=== PATIENT | female | born 1990 | race Caucasian/White ===

== ENCOUNTER 2017-01-20 12:42 | Inpatient (IN) | payer OTHER ==
[~2017-01-20] VITALS: Ht 154.9 cm; Wt 87.5 kg
[~2017-01-20 12:42] MED LIST: HYDROcodone-APAP 5-325 PO
[2017-01-20 15:19] LABS: Mean Corpuscular Volume 88.4 fL (81-100)
[2017-01-20] MEDS ORDERED: Oxytocin 30 Units/500 mL LR 30 UNITS in IV Premix 1 EACH IV PRN ×2 (17:50→18:20)
[2017-01-20] MEDS ORDERED: diphenhydrAMINE 50 mg Capsule PO PRN (17:50)
[2017-01-20] MEDS ORDERED: Oxytocin 10 Unit/mL Inj IM PRN (18:20)
[2017-01-20] MEDS ORDERED: fentaNYL-PF 50 mCg/mL 2 mL Inj IVPUSH PRN (18:20)
[2017-01-20] MEDS ORDERED: Hemorrhage Kit, Post Partum XX ONE (18:20)
[2017-01-20] MEDS ORDERED: Methylergonovine 0.2 mg/mL Inj IM PRN (18:20)
[2017-01-20] MEDS ORDERED: Lactated Ringer's 1,000 ML IV SCH (18:20)
[2017-01-20] MEDS ORDERED: Sodium Chloride LOK Flush 10 mL Syringe IVFLUSH PRN (18:20)
[2017-01-20] MEDS ORDERED: Lactated Ringer's 1,000 ML IV PRN (18:20)
[2017-01-20] MEDS ORDERED: Carboprost 250 mCg/mL Inj IM PRN (18:20)
--- NOTE | 2017-01-20 18:20 | CONS ---
[address] [address] CONSULTATION REPORT PATIENT: MAYITO PARIS V : 1990 MR#: [id number] ADMIT: 01/20/2017 JOB ID: [id number] DATE OF SERVICE: 01/20/2017 REQUESTING PHYSICIAN: Dr. Giang, who is covering for (patient's primary OB provider) HISTORY OF PRESENT ILLNESS: The patient is 26-year-old, 2, para 1-0-0-1, at 40 weeks and 5 days gestational age by LMP, confirmed by 17-week ultrasound. Had her complicated with the following. 1. Gestational hypertension. 2. History of HSV, currently on prophylaxis that started at 34 weeks gestational age. Presented to triage for elective NST. Elevated blood pressures were noted and consult was requested by Dr. Giang. PAST OBSTETRICAL HISTORY: 2009, A 39-weeks ended with spontaneous vaginal delivery and the current . PAST GYNECOLOGIC HISTORY: Prior history of recurrent HSV. Prophylaxis started at 34 weeks gestational age this . PAST MEDICAL HISTORY: Gastroesophageal reflux disease and headache. MEDICATIONS: 1. Omeprazole. 2. Valacyclovir. 3. vitamins. ALLERGIES: She patient records list. SOCIAL HISTORY: Denied any alcohol consumption. Denied any drugs of abuse. Denied any cigarette smoking. LABORATORIES: O-positive, rubella immune, serology nonreactive, hepatitis B surface antigen negative. HIV nonreactive. GC Chlamydia cultures negative. One-hour GCT within normal limits. GBS cultures negative. Preeclampsia. labs in triage: H and H is 15.2, 40.2. Platelets showed 208. White blood count 9.8. AST 21. ALT 11. Uric acid 5.9. Creatinine is 0.61. BUN is 9. Urine protein/creatinine ratio is 0.11. Within normal limits. PHYSICAL EXAMINATION: Patient is alert, oriented x3. Vital signs are 136/93 for blood pressure. Respirations are 18, pulse is 92, pulse ox is 98% on room air. Blood pressure ranges within the last 3 hours of triage evaluation showed the following: Systolic ranges are 144-134, diastolic ranges are 102-88. Heart is regular rate and rhythm. Positive S1, S2. Lungs clear to auscultation bilaterally. Abdomen: Gravid uterus. Lower extremities: No calf tenderness appreciated bilaterally. Perineal exam showed no herpetic lesions. No lesions as well palpated on vaginal and cervical exam. Cervix is 1 cm dilated, 60% effaced, -3 station, vertex presentation, midposition, medium consistency. Castillo score of 5. *Cervical ripening balloon was inserted successfully, 80 cc of normal saline injected in the uterine balloon and 80 cc injected in the vaginal balloon. Patient tolerated the insertion well. heart tracing is showing a baseline of 155 beats per minute, positive accelerations, no decelerations, moderate variability, reactive tracing. ASSESSMENT AND PLAN: Patient is a 26-year-old, 2, para 1-0-0-1, at 40 weeks and 5 days gestational age. with gestational hypertension. Discussed with Dr. Giang. Admission and induction of labor was recommended. Dr. Ginag agreed and asked me to insert a cervical ripening balloon (see procedure note above).The patient tolerated the insertion well. 1. heart tracing is reactive. Will continue with external monitoring. 2. Induction of labor, started with cervical ripening balloon.Follow with Pitocin IV. 3. GBS cultures negative. 4. Dr. Giang to discuss intrapartum analgesia options with the patient. All the above discussed in details with the patient. Induction consent signed. All questions answered. MICHA
--- NOTE | 2017-01-20 18:43 | PCM.HPOB ---
Subjective Date of Service: Jan 20, 2017 Referring Provider: Admitting Physician: Delgado Giang MD Primary Care Physician: Marlin Madison MD Attending Physician: Delgado Giang MD Chief Complaint Post-dates . History of Present History of Present Illness Patient presented today for a scheduled post-dates NST. monitoring was reassuring. However, maternal vital signs showed persistent elevation of diastolic blood pressures, in the mid to high 90s. Patient was asymptomatic. Serum and urine labs were reassuring, with no evidence of pre-eclampsia or HELLP. OB History: (2), Para (1), Term (1), Pre-term (0), ( 0), Living (1) Obstetrical Complications: Gestational Diabetes Past Medical History Obstetrical History: at 39 wks EGA, on 10/13/10. YAMILETH for analgesia. 6lb 9oz. Gynecologic History: Recurrent genital HSV, asymptomatic and on valacyclovir prophylaxis since 34 weeks EGA. Past LEEP for cervical dysplasia. Medical History: GERD Surgical History: Appendectomy 2014 Social History: Single. Hx Tobacco Use: No Hx Alcohol Use: No Hx Substance Use: No Genetic Screening/Counseling Genetic Screening/Counseling: Negative Review of Systems Constitutional: Y: Chills, Fever, Pain Cardiovascular: Denies: Chest Pain, Palpitations Respiratory: Denies: Cough, Wheezing Gastrointestinal: Denies: Abdominal Pain, Epigastric pain, Nausea, Vomiting Neurological: Denies: Change in Speech, Confusion, Numbness Hematologic: Denies: Abnormal bleeding Medications Home medications vitamins once daily Omeprazole 20mg twice daily Valacyclovir 500mg twice daily Allergy Coded Allergies: erythromycin base (Verified Allergy, Unknown, 09/05/15) sulfisoxazole (Verified Allergy, Unknown, 09/05/15) Uncoded Allergies: SULFA (Allergy, Unknown, 09/05/15) Exam Vital Signs As noted above. Systolic pressures all <140. Diastolic pressures consistently in the 90s. Constitutional: Well-developed, Well-nourished, Normal habitus, Well-groomed HEENT: Atraumatic Lungs: Clear to Auscultation, Normal Air Movement Heart: Normal S1, Normal S2, No Murmurs/Rubs/Gallops Abdomen: Gravid, Soft, No tenderness Neurological/Psychiatric: Alert, Oriented X3, Cooperative, No Acute Distress Neuro: Grossly Neurologically Intact Additional Information Genital/cervical exam per Dr. Pineda's evaluation. Labs/Diagnostics Maternal Blood Type: O (positive) Hx Rho(D) Immune Globulin: No Previous with GBS: No Rubella: Immune Lab History: Positive for: Hx Herpes, Negative for: Hx Gonorrhea, Hx HIV, Hx Syphilis OB Intrapartum Assessment/Plan Assessment Post-dates gestation with gestational hypertension. Problems: (1) Gestational hypertension w/o significant proteinuria in 3rd trimester Plan: Admit for labor induction. Status: Acute ICD Code: O13.3 (2) Post-term , 40-42 weeks of gestation Status: Acute ICD Code: O48.0 Pain Evaluation: Adequate Pain Control Delgado Giang MD Jan 20, 2017 18:43
[2017-01-20] MEDS: Lactated Ringer's 1,000 ML IV SCH (20:20)
[2017-01-20] MEDS: Pantoprazole 20 mg ER24 Tablet PO SCH (20:34)
[2017-01-21] MEDS: Lactated Ringer's 1,000 ML IV SCH ×6 (05:30→22:28)
[2017-01-21] MEDS ORDERED: Oxytocin 30 Units/500 mL LR Premix IV SCH (06:20)
[2017-01-21] MEDS: Pantoprazole 20 mg ER24 Tablet PO SCH ×2 (08:27→20:00)
--- NOTE | 2017-01-21 09:21 | PCM.PNOBIP ---
Subjective Date of Service Jan 21, 2017 Delivery plan: Spontaneous Vaginal Delivery Visit History Labor induction for post-dates gestational hypertension. Subjective Patient feeling well. Cervical balloon catheter is now out and oxytocin has been initiated (now at 6 mU/min). Pain Management: No or Minimal Pain Activity: Ambulating Independently Rubella: Immune Blood Type: O (positive) Labs Laboratory Tests 01/20/17 15:15: White Blood Count 9.8, Red Blood Count 4.55, Hemoglobin 13.2, Hematocrit 40.2, Mean Corpuscular Volume 88.4, Mean Corpuscular Hemoglobin 29.0, Mean Corpuscular Hemoglobin Concent 32.8, Red Cell Distribution Width 14.9, Platelet Count 208 Exam Vital Signs Vital Signs Contraction frequency in minutes: 2-4 Vital Signs: VS reviewed, stable (blood pressures have improved from admission) Heart Tracings Heart Tones Baseline 150 bpm Heart Rate Variability: Moderate Heart Rate Accelleration: Present Heart Rate Deceleration: Absent Heart Rate Category: I Tocometry/IUPC Contraction frequency in minutes: MVUs: Sterile Vaginal Exam Cervical Dilation: 4 cms Cervical Effacement: 90 % Station: -3 Exam General: Alert, Oriented X3, Cooperative, No Acute Distress OB Intrapartum Assessment/Plan Assessment Post-dates labor induction, progressing Problems: (1) Gestational hypertension w/o significant proteinuria in 3rd trimester Status: Acute ICD Code: O13.3 (2) Post-term , 40-42 weeks of gestation Status: Acute ICD Code: O48.0 Intrapartum plan: AROM (clear fluid) Intrapartum Pain Management: May have epidural when desired, IV Fentanyl Pain Evaluation: Adequate Pain Control Delgado Giang MD Jan 21, 2017 09:21
[2017-01-21] MEDS ORDERED: Ondansetron 2 mg/mL 2 mL Inj IVPUSH PRN (10:40)
[2017-01-21] MEDS ORDERED: Atropine 1 mg/10 mL (Code) Syringe IVPUSH PRN (10:40)
[2017-01-21] MEDS ORDERED: Lactated Ringer's 500 ML IV ONE (10:40)
[2017-01-21] MEDS ORDERED: EPHEDrine Sulfate 50 mg/mL Inj IVPUSH PRN (10:40)
[2017-01-21] MEDS ORDERED: fentaNYL 2 mCg/mL-Bupiv 0.125% 100 ML EPIDURAL SCH (10:40)
--- NOTE | 2017-01-21 10:43 | PCM.HPANE ---
Patient Data Date of Service: Jan 21, 2017 Surgeon Admitting Provider:Delgado Gaing MD Attending Provider:Delgado Giang MD Primary Care Physician:Marlin Madison MD Other Provider:Angel Elizondo Anesthesia Reason for Visit NST NST Ht/WT & BMI Body Mass Index Allergies Coded Allergies: erythromycin base (Verified Allergy, Unknown, 09/05/15) sulfisoxazole (Verified Allergy, Unknown, 09/05/15) Uncoded Allergies: SULFA (Allergy, Unknown, 09/05/15) Diabetes History Hx Diabetes?: No MRSA MRSA: No Medications Active Scripts [Hydrocodone/Acetaminophen] ([place] 5-325)1 TABLET TABLET No Conflict Check1-2 Tablet PO Q4H PRN For Pain #20 TABLET Prov:Oswaldo Hess PA-C 09/06/15 History History of ENT Problems?: No Hx of Heart Problems?: No Cardiovascular History: Denies:: Congestive Heart Failure Hypertension Hx of Respiratory Problem?: No Respiratory History: Denies:: Tuberculosis Hx Neurologic Problems?: No Hx of GI Problems?: No Hx of Problems?: Yes Genitourinary History: Positive for:: Urinary Tract Infection Female Hx: Denies:: Currently Endometriosis Pelvic Inflammatory Problems with Breasts? Hx Musculoskeletal Problems?: No Hx of Psycho/Social Problems?: No Hx Surgeries?: No Hx Any Other Health Problems?: No History Blood Transfusions: Denies:: Blood Transfusions Hx Diabetes: No Hx Alcohol Use: NoHx Substance Use: No Smoking Status: Former Smoker Stop/Bang Risk Assessment Category Category 1A: Patient has history of documented sleep apnea, and HAS NOT received any narcotic, sedative or anesthesia administration during this stay. Category 1B: Patient has history of documented sleep apnea, and HAS received any narcotic , sedative or anesthesia administration during this stay Category 2: Patient has SUSPECTED Obstructive Sleep Apnea, and HAS received any narcotic , sedative or anesthesia administration during this stay. Category 3: Patient has SUSPECTED Obstructive Sleep Apnea and HAS NOT received narcotic, sedative or anesthesia administration during this stay. Category 4: Outpatient in Procedural Areas with known sleep apnea or who screen positive for High Risk via the STOP/BANG questionnaire. Meds/Labs/Diagnostics Admission Meds Current Medications Lactated Ringer's (Lr) 1,000 ml @ 125 mls/hr Q8H IV Last administered on 09:21; Start 01/20/17 at 17:47 Valacyclovir HCl (Valtrex) 500 mg BID PO Last administered on 01/21/17 08:27; Start 01/20/17 at 20:30 Pantoprazole 20 mg 20 mg BID PO Last administered on 01/21/17 08:27; Start 01/20 at 20:30 Oxytocin/Lactated Ringer's/Premix (Pitocin 30 Units/500 mL LR/ IV Premix) 500 ml @ 0 mls/hr Q0M IV Last administered on 01/21/17 06:45; Start 01/21/17 at 06: 20 Labs Test 01/20/17 15:15 01/20/17 15:19 White Blood Count 9.8th/mm3 (3.8-10.1) Red Blood Count 4.55mil/mm3 (3.90-5.20) Hemoglobin 13.2g/dL (12.0-15.6) Hematocrit 40.2% (35.0-46.0) Mean Corpuscular Volume 88.4fL (81-100) Mean Corpuscular Hemoglobin 29.0pg (27.0-35.0) Mean Corpuscular Hemoglobin Concent 32.8% (32.0-37.0) Red Cell Distribution Width 14.9% (12.3-15.4) Platelet Count 208bil/L (150-400) Blood Urea Nitrogen 9mg/dL (6-20) Creatinine 0.61mg/dL (0.57-1.00) Uric Acid 5.9mg/dL (2.6-7.2) Aspartate Amino Transf (AST/SGOT) 21U/L (0-50) Alanine Aminotransferase (ALT/SGPT) 11U/L (0-32) Urine Random Creatinine 84mg/dL (16-392) Urine Random Total Protein 9mg/dL (0-15) Urine Protein/Creatinine Ratio 0.11 Plan Impression Patient chart reviewed, patient interviewed and anesthestic plan with risks, benefits, and alternatives discussed, and informed consent obtained. ASA Physical Status: ASA2 Mod Systemic Disease Anesthetic Plan: Epidural Bene/Risks/Altern/Consents: Yes (including but not limited to back pain, headache, nerve injury, cv/respiratory problems.) HP Complete Prior to Induction: Yes Joaquín Haines MD Jan 21, 2017 10:43
[2017-01-21] MEDS ORDERED: Witch Hazel-Glycerin Pads TOPICAL PRN (14:30)
[2017-01-21] MEDS ORDERED: Oxytocin 30 Units/500 mL LR 30 UNITS in IV Premix 1 EACH IV PRN (14:30)
[2017-01-21] MEDS ORDERED: Carboprost 250 mCg/mL Inj IM PRN (14:30)
[2017-01-21] MEDS ORDERED: LANOlin HPA 7 Gm Ointment TOPICAL PRN (14:30)
[2017-01-21] MEDS ORDERED: Benzocaine (Dermoplast) 20% 60 Gm Spray TOPICAL PRN (14:30)
[2017-01-21] MEDS ORDERED: Methylergonovine 0.2 mg/mL Inj IM PRN (14:30)
[2017-01-21] MEDS ORDERED: Hemorrhage Kit, Post Partum XX ONE (14:30)
[2017-01-21] MEDS ORDERED: Oxytocin 10 Unit/mL Inj IM PRN (14:30)
--- NOTE | 2017-01-21 14:40 | PCM.OBVAG ---
Vaginal Delivery Date of Service Jan 21, 2017 Pre Operative Diagnosis Pre Operative Diagnosis Labor induction for post-EDC gestation with gestational hypertension Post Operative Diagnosis Post Operative Diagnosis Term gestation, delivered Procedure Obstetical Procedure: Normal Spontaneous Vaginal Delivery Solution Strategist/Uptwist Spinner Provider and Uptwist Spinner: Delgado Giang MD Indication for Procedure Induction: Induction of labor (for gestational hypertension and post-dates gestation), Pitocin augmentation, AROM, Progressed normally through labor Findings Findings: Perineum intact. Obstetrical Findings: [place] (Female), Cord, Presentation (Vertex), Placenta ( Intact/Normal) Analgesia/Medications Obstetrical Anesthesia: Epidural Procedure Details Procedure Details 26yo , presenting at 40 5/7 weeks EGA for a scheduled post-dates NST, was noted to have reassuring monitoring but maternal vital signs showed persistent elevation of diastolic blood pressures, in the mid to high 90s. Asymptomatic, with reassuring labs that showed no signs of pre-eclampsia or HELLP. Patient was admitted for labor induction. She initially received a cervical balloon catheter and was transitioned to oxytocin augmentation and AROM. She progressed well through labor, delivering via uncomplicated . Infant was transferred to the maternal chest after delivery, where routine drying and stimulation were performed. Delayed cord clamping was observed. Blood Loss & Administration Estimated Blood Loss: 300 Post Procedure Plan Post delivery Condition: Mom stable, Baby stable to nursery Delgado Giang MD Jan 21, 2017 14:40
[2017-01-21] MEDS: Sodium Chloride LOK Flush 10 mL Syringe IVFLUSH SCH (16:30)
[2017-01-22] MEDS: Sodium Chloride LOK Flush 10 mL Syringe IVFLUSH SCH ×3 (00:30→16:30)
[2017-01-22] MEDS: Lactated Ringer's 1,000 ML IV SCH ×4 (02:40→14:28)
[2017-01-22 06:07] LABS: Mean Corpuscular Hemoglobin 28.9 pg (27.0-35.0); Mean Corpuscular Volume 88.9 fL (81-100)
[2017-01-22] MEDS: HYDROcodone-APAP 5-325 mg Tablet PO PRN ×3 (08:03→15:53)
[2017-01-22] MEDS: Pantoprazole 20 mg ER24 Tablet PO SCH (08:04)
--- NOTE | 2017-01-22 14:01 | PCM.DC.OB ---
Obstetrical Discharge Summary Date of Service Jan 22, 2017 Date of hospital admission Jan 20, 2017 at 16:45 Date of Discharge: Jan 22, 2017 Providers Admitting Physician: Delgado Giang MD Primary Care Physician: Marlin Madison MD Attending Physician: Delgado Giang MD Diagnosis at Time of Discharge gestational hypertension; normal vaginal delivery at term; history of HSV, on prophylaxis since 34 wk gestational age. Problems: (1) Gestational hypertension w/o significant proteinuria in 3rd trimester Status: Acute ICD Code: O13.3 (2) Post-term , 40-42 weeks of gestation Status: Acute ICD Code: O48.0 Brief History and Physical: Patient presented on 01/20/17 for a scheduled post-dates NST. monitoring was reassuring. However, maternal vital signs showed persistent elevation of diastolic blood pressures, in the mid to high 90s. Patient was asymptomatic. Serum and urine labs were reassuring, with no evidence of pre-eclampsia or HELLP. Pt proceeded with induction of labor at 40 wk 5 d gestational age after an OB consult with Dr. Pineda and had a normal vaginal delivery the next day on . She did well on day 1 and day 2, with normal blood pressure at the time of discharge. Hospital Course: Please see notes by Dr. Pineda and Dr. Giang for details. Patient presented on for a scheduled post-dates NST. monitoring was reassuring. However , maternal vital signs showed persistent elevation of diastolic blood pressures , in the mid to high 90s. Patient was asymptomatic. Serum and urine labs were reassuring, with no evidence of pre-eclampsia or HELLP. Pt proceeded with induction of labor at 40 wk 5 d gestational age after an OB consult with Dr. Pineda and had a normal vaginal delivery the next day on 01/21/17. She did well on day 1 and day 2, with normal blood pressure at the time of discharge. ([HYDROcodone-APAP 5-325]) 1 TABLET TABLET 1-2 TABLET PO Q4H PRN PRN For Pain Prescribed by: KASHIF MITCHELL, NIKHIL Discharge Medications: Colace 100 mg bid prn constipation #30, rf x 1; ibuprofen 600 mg q 6 hr prn pain , #30, rf x 1; hydrocodone/acetaminophen 5/324 mg up 3 times daily as needed for pain, #15; ferrous gluconate 325 mg daily. Disposition home with Follow-up plan f/u [place] [facility] [place] with Dr. Blas or [place] in 4 to 6 wk for check, sooner as needed. Discharge Diet: Heart Healthy Discharge Activity-General: Pelvic Rest for 6 weeks Marlin Madison MD Jan 22, 2017 14:01
--- NOTE | 2017-01-22 15:18 | PCM.DIOB ---
Obstetrical Disch Instruction Date of Service: Jan 22, 2017 Dates of Hospitalization Date of Hospital Admission Jan 20, 2017 at 16:45 Providers Admitting Physician: Delgado Giang MD Primary Care Physician: Marlin Madison MD Attending Physician: Delgado Giang MD Discharge Diagnosis Discharge Diagnosis Normal vaginal delivery at term; gestational hypertension; history of HSV, on prophylaxis since 34 wk gestational age. Problems: (1) Gestational hypertension w/o significant proteinuria in 3rd trimester Status: Acute ICD Code: O13.3 (2) Post-term , 40-42 weeks of gestation Status: Acute ICD Code: O48.0 Diet Discharge Diet: Heart Healthy Activity Discharge Activity-General: Pelvic Rest for 6 weeks Dressing and Incisional Care Hygiene: May shower Follow Up Plan Follow Up Plan nurse visit at [facility] for b/p check within 1 to 3 days; alternatively, check b/ p at home and inform [facility] of the recorded b/p readings. Followup at [facility] for check with Dr. Blas or Los in 4 to 6 wk, sooner as needed. Call your provider for: Fever or Chills, Shortness of breath, Heavy vaginal bleeding, Heavy bleeding, Epigastric pain, Excessive constipation, Vaginal discomfort, Red painful breasts Marlin Madison MD Jan 22, 2017 15:18
== END 2017-01-22 18:55 | disposition home or self-care (01) | DRG 775 ==
LOC: FBCO 12:42 → FBC 16:45
PROVIDERS: ADMIT Family Medicine; ATTEND Family Medicine
PROC: 0U7C7ZZ Dilation of Cervix, Via Natural or Artificial Opening (ICD-10-PCS; 2017-01-20)
PROC: 10H07YZ Insertion of Other Device into Products of Conception, Via Natural or Artificial Opening (ICD-10-PCS; 2017-01-20)
PROC: 10E0XZZ Delivery of Products of Conception, External Approach (ICD-10-PCS; principal; 2017-01-21)
PROC: 10907ZC Drainage of Amniotic Fluid, Therapeutic from Products of Conception, Via Natural or Artificial Opening (ICD-10-PCS; 2017-01-21)
DX: O13.4 Gestational [pregnancy-induced] hypertension without significant proteinuria, complicating childbirth (principal); O69.81X0 Labor and delivery complicated by cord around neck, without compression, not applicable or unspecified; O48.0 Post-term pregnancy; Z3A.40 40 weeks gestation of pregnancy; Z37.0 Single live birth